=== PATIENT | female | born 1955 | race Caucasian/White ===

== ENCOUNTER 2016-11-25 04:49 | Emergency (ER) | payer MEDICARE, MEDICAID ==
[2016-11-25] MEDS ORDERED: HYDROMORPHONE HCL INJ/PF 2 MG/ML AMPULE IM ONE (05:29)
[2016-11-25] MEDS ORDERED: PREDNISONE 20 MG TABLET PO ONE (05:30)
[2016-11-25] MEDS ORDERED: ONDANSETRON 4 MG TAB.RAPDIS PO ONE (05:30)
--- NOTE | 2016-11-25 05:54 | ER Document Report ---
HPI - HPI Patient complains to provider of: lower back pain Pain Level: 5 Context: Patient is a 61-year-old female who comes emergency department for chief complaint of lower back pain. Patient has chronic back pain but it is normally tolerable, tonight she became nauseated from the pain. She took gabapentin and a muscle relaxer without relief. She has a laminectomy scheduled in [facility] within the next week. She has been on 4 rounds of steroids for lower back pains and sciatica. She states her sciatica has become more severe tonight again with radiations down the back of her right leg. She denies fever, history of IV drug abuse, reinjury, or any other symptoms. Past Medical History - General Information source: Patient - Social History Smoking Status: Never Smoker Frequency of alcohol use: None Drug Abuse: None Lives with: Family Family History: Reviewed & Not Pertinent Patient has suicidal ideation: No Patient has homicidal ideation: No Renal/ Medical History: Denies: Hx Peritoneal Dialysis Musculoskeltal Medical History: Reports Hx Arthritis, Reports Hx Musculoskeletal Deformity Past Surgical History: Reports: Hx Cholecystectomy - Immunizations Immunizations up to date: Yes Hx Diphtheria, Pertussis, Tetanus Vaccination: Yes Vertical Provider Document - CONSTITUTIONAL General Appearance: Mild Distress - patient wincing, cannot get comfortable lying on the bed, Obese - INFECTION CONTROL TRAVEL OUTSIDE OF THE [place] IN LAST 30 DAYS: No - HEENT HEENT: Atraumatic, Normocephalic - NECK Neck: Normal Inspection - RESPIRATORY Respiratory: Breath Sounds Normal, No Respiratory Distress O2 Sat by Pulse Oximetry: 99 - CARDIOVASCULAR Cardiovascular: Regular Rate, Regular Rhythm - GI/ABDOMEN Gastrointestinal: Abdomen Soft, Abdomen Non-Tender - BACK Back: negative: Normal Inspection - no midline tenderness, no saddle anesthesia ; normal UE and LE strength and ROM although signifcantly painful SLR on the right leg; tender in bilateral lumbar musculature; otherwise normal back exam Course - Re-evaluation Re-evalutation: Flare up like before of chronic symptoms. Treating with meds here, starting back on prednisone, patient has pain meds at home and excellent followup. No N/ V deficits or acute concerns. Discussed followup, return precautions. Patient states understanding and agreement. - Vital Signs Vital signs: Temp Pulse Resp BP Pulse Ox 98.9 F 77 20 122/65 99 11/25/16 04:52 11/25/16 04:52 11/25/16 04:52 11/25/16 04:52 11/25/16 04:52 Discharge - Discharge Clinical Impression: Lower back pain Qualifiers: Chronicity: acute Back pain laterality: bilateral Sciatica presence: with sciatica Sciatica laterality: sciatica of right side Qualified Code(s): M54.41 - Lumbago with sciatica, right side Condition: Stable Disposition: HOME, SELF-CARE Additional Instructions: Take prednisone as prescribed. Take your pain medication, apply heat to the area, rest, and follow up with your Provider. Return to the ED for any concerning or worsening symptoms - numbness, fever, worsening pain, loss of bowel or bladder control, etc. Prescriptions: Prednisone [Deltasone 10 mg Tablet] 10 mg PO ASDIR PRN #21 tablet PRN Reason:
[2016-11-25 06:33] VITALS: BP 110/42
== END 2016-11-25 07:43 | disposition home or self-care (01) ==
LOC: ER 04:49
DX: M54.41 Lumbago with sciatica, right side (principal); Z90.49 Acquired absence of other specified parts of digestive tract
CPT/HCPCS: 99283; 96372; A9270 ×2; J1170; J7512; S0119

== ENCOUNTER → 2018-12-10 | Outpatient (CLI) | payer MEDICARE, MEDICAID ==
--- NOTE | 2018-12-10 11:09 | WOMENS IMAGING REPORT ---
EXAM DESCRIPTION: BILAT SCREENING MAMMO W/CAD COMPLETED DATE/TIME: 12/10/2018 10:30 am REASON FOR STUDY: Z12.31 ROUTINE BILATERAL SCREENING Z12.31 ENCNTR SCREEN MAMMOGRAM FOR MALIGNANT N EOPLASM OF AMY COMPARISON: Move 2014, 2015 EXAM PARAMETERS: Standard craniocaudal and mediolateral oblique views of each breast recorded using digital acquisition. Read with the assistance of CAD. .[facility] - [employer] Version 9.2 LIMITATIONS: None. FINDINGS: No suspicious masses, suspicious calcifications or architectural distortion. No areas of s uspicion. IMPRESSION: Negative MAMMOGRAM. BIRADS 1 BREAST DENSITY: a. The breasts are almost entirely fatty. BIRAD: ASSESSMENT: 1 NEGATIVE RECOMMENDATION: ROUTINE SCREENING COMMENT: The patient has been notified of the results by letter per MQSA requirements. Additional no tification policies are in place for contacting patient with suspicious or incomplete findings. Quality ID #[id number]: The [employer] recommends an annual screening mammogram for women aged 40 years or over. This facility utilizes a reminder system to ensure that all patients receive reminder letters, and/or direct phone calls for appointments. This includes reminders for routine scr eening mammograms, diagnostic mammograms, or other Breast Imaging Interventions when appropriate. Th is patient will be placed in the appropriate reminder system. TECHNICAL DOCUMENTATION: FINDING NUMBER: (1) ASSESSMENT: (1) JOB ID: [id number] [employer]- All Rights Reserved Reading location - IP/workstation name: [email or web address]
== END ==
LOC: WI 10:14
PROVIDERS: ATTEND Registered Nurse
DX: Z12.31 Encounter for screening mammogram for malignant neoplasm of breast (principal)
CPT/HCPCS: 77067